=== PATIENT | female | born 1985 | race Asian ===

== ENCOUNTER 2019-01-01 05:50 | Emergency (ER) | payer SELFPAY ==
[~2019-01-01] VITALS: Ht 157.5 cm; Wt 90.7 kg
[2019-01-01] MEDS ORDERED: ONDANSETRON PF 4 MG/2 ML VIAL. IV ONE (06:15)
[2019-01-01] MEDS ORDERED: IV NORMAL SALINE 1000ML BAG 1,000 ML IV SCH (06:15)
[2019-01-01] MEDS ORDERED: fentaNYL PF VIAL 100 MCG/2 ML VIAL IV ONE (06:15)
[2019-01-01 06:27] LABS: BASO # 0.1 x10^3/uL (0.0-0.2); BASO % 1 % (0-3); EOS # 0.3 x10^3/uL (0.0-0.7); EOS % 3 % (0-3); HEMOGLOBIN 12.5 g/dL (12.0-15.5); LYMPH # 2.6 x10^3/uL (1.0-4.8); LYMPH % 32 % (24-48); MEAN CORPUSCULAR HEMOGLOBIN 27 pg (25-35); MEAN CORPUSCULAR HGB CONC 33 g/dL (31-37); MEAN CORPUSCULAR VOLUME 81 fL (79-100); MONO # 0.5 x10^3/uL (0.0-1.1); MONO % 7 % (0-9); NEUT # 4.8 x10^3/uL (1.8-7.7); NEUT % 57 % (31-73); PLATELET COUNT 181 x10^3/uL (140-400); WHITE BLOOD COUNT 8.3 x10^3/uL (4.0-11.0)
[2019-01-01 06:35] LABS: CREATININE 0.7 mg/dL (0.6-1.0); POTASSIUM 3.7 mmol/L (3.5-5.1)
[2019-01-01 06:41] LABS: ALBUMIN 3.6 g/dL (3.4-5.0); ALBUMIN/GLOBULIN RATIO 0.9 (1.0-1.7); TOTAL BILIRUBIN 0.2 mg/dL (0.2-1.0); TOTAL PROTEIN 7.4 g/dL (6.4-8.2)
[2019-01-01 06:44] LABS: BILIRUBIN,URINE SMALL (NEG); CLARITY,URINE CLOUDY; COLOR,URINE AMBER; NITRITE,URINE NEGATIVE (NEG); PROTEIN,URINE 30 mg/dL (NEG-TRACE)
[2019-01-01 07:13] LABS: BACTERIA,URINE FEW /HPF (0-FEW); SQUAMOUS EPITHELIAL CELL,UR MANY /LPF
--- NOTE | 2019-01-01 07:14 | PHYS DOC ---
Past Medical History Past Medical History: No Pertinent History Past Surgical History: No Surgical History Alcohol Use: Rarely Drug Use: None Adult General Chief Complaint Chief Complaint: FLANK PAIN HPI HPI Patient is a 33 year old female patient who presents with complaining of flank pain. Patient complaining of sudden onset of right flank pain with radiation to the suprapubic area as a sharp and constant pain since 0300 today that gradually getting worse. Patient rated her pain 10 over 10 and complaining of nausea without vomiting. Patient denies urinary symptoms, , history of the same pain or kidney stone, percent dehydration, fever and chills. Patient started to vomit at arrival to ER. Review of Systems Review of Systems Constitutional: Denies fever or chills [] Eyes: Denies change in visual acuity, redness, or eye pain [] HENT: Denies nasal congestion or sore throat [] Respiratory: Denies cough or shortness of breath [] Cardiovascular: No additional information not addressed in HPI [] GI: Denies abdominal pain, bloody stools or diarrhea , reports nausea and vomiting[] : Denies dysuria or hematuria, reports flank pain Musculoskeletal: Denies back pain or joint pain [] Integument: Denies rash or skin lesions [] Neurologic: Denies headache, focal weakness or sensory changes [] Endocrine: Denies polyuria or polydipsia [] All other systems were reviewed and found to be within normal limits, except as documented in this note. Current Medications Current Medications Current Medications Medications (Trade) Dose Ordered Sig/Yovany Start Time Stop Time Status Last Admin Dose Admin Acetaminophen/ Hydrocodone Bitart (Lortab 5/325) 1 tab 1X ONCE 01/01/19 08:15 01/01/19 08:16 DC 01/01/19 08:26 1 TAB Ciprofloxacin (Cipro) 250 mg 1X ONCE 01/01/19 08:15 01/01/19 08:16 DC 01/01/19 08:26 250 MG Fentanyl Citrate (Fentanyl 2ml Vial) 50 mcg 1X ONCE 01/01/19 06:15 01/01/19 06:17 DC 01/01/19 06:29 50 MCG Ketorolac Tromethamine (Toradol 30mg Vial) 30 mg 1X ONCE 01/01/19 07:15 01/01/19 07:16 DC 01/01/19 07:11 30 MG Metoclopramide HCl (Reglan Vial) 10 mg 1X ONCE 01/01/19 07:15 01/01/19 07:16 DC 01/01/19 07:11 10 MG Ondansetron HCl (Zofran) 4 mg 1X ONCE 01/01/19 06:15 01/01/19 06:17 DC 01/01/19 06:29 4 MG Sodium Chloride 1,000 ml @ 1,000 mls/hr Q1H 01/01/19 06:15 01/01/19 07:14 DC 01/01/19 06:29 1,000 MLS/HR Tamsulosin HCl (Flomax) 0.4 mg 1X ONCE 01/01/19 08:15 01/01/19 08:16 DC 01/01/19 08:26 0.4 MG Allergies Allergies Allergies Coded Allergies Type Severity Reaction Last Updated Verified No Known Drug Allergies 01/01/19 No Physical Exam Physical Exam Constitutional: Well developed, well nourished, moderate distress, non-toxic appearance. [] HENT: Normocephalic, atraumatic. Eyes: PERRLA, EOMI, conjunctiva normal, no discharge. [] Neck: Normal range of motion, no tenderness, supple, no stridor. [] Cardiovascular:Heart rate regular rhythm, no murmur [] Lungs & Thorax: Bilateral breath sounds clear to auscultation [] Abdomen: Bowel sounds normal, soft, no tenderness, no masses, no pulsatile masses. [] Skin: Warm, dry, no erythema, no rash. [] Back: No tenderness, no CVA tenderness. [] Extremities: No tenderness, no cyanosis, no clubbing, ROM intact, no edema. [] Neurologic: Alert and oriented X 3, no focal deficits noted. [] Psychologic: Affect normal, judgement normal, mood normal. [] Current Patient Data Vital Signs Vital Signs Date Time Temp Pulse Resp B/P (MAP) Pulse Ox O2 Delivery O2 Flow Rate FiO2 01/01/19 08:26 18 99 01/01/19 08:23 58 103/62 (76) Room Air 01/01/19 05:59 97.4 97.4 Lab Values Laboratory Tests Test 01/01/19 06:10 01/01/19 06:23 01/01/19 06:26 White Blood Count 8.3 x10^3/uL (4.0-11.0) Red Blood Count 4.70 x10^6/uL (3.50-5.40) Hemoglobin 12.5 g/dL (12.0-15.5) Hematocrit 38.0 % (36.0-47.0) Mean Corpuscular Volume 81 fL (79-100) Mean Corpuscular Hemoglobin 27 pg (25-35) Mean Corpuscular Hemoglobin Concent 33 g/dL (31-37) Red Cell Distribution Width 15.0 % (11.5-14.5) H Platelet Count 181 x10^3/uL (140-400) Neutrophils (%) (Auto) 57 % (31-73) Lymphocytes (%) (Auto) 32 % (24-48) Monocytes (%) (Auto) 7 % (0-9) Eosinophils (%) (Auto) 3 % (0-3) Basophils (%) (Auto) 1 % (0-3) Neutrophils # (Auto) 4.8 x10^3/uL (1.8-7.7) Lymphocytes # (Auto) 2.6 x10^3/uL (1.0-4.8) Monocytes # (Auto) 0.5 x10^3/uL (0.0-1.1) Eosinophils # (Auto) 0.3 x10^3/uL (0.0-0.7) Basophils # (Auto) 0.1 x10^3/uL (0.0-0.2) Maternal Serum HCG Beta Subunit < 1 mIU/mL (0-5) Sodium Level 143 mmol/L (136-145) Potassium Level 3.7 mmol/L (3.5-5.1) Chloride Level 109 mmol/L (98-107) H Carbon Dioxide Level 25 mmol/L (21-32) Anion Gap 9 (6-14) Blood Urea Nitrogen 13 mg/dL (7-20) Creatinine 0.7 mg/dL (0.6-1.0) Estimated GFR (Cockcroft-Gault) 97.0 BUN/Creatinine Ratio 19 (6-20) Glucose Level 125 mg/dL (70-99) H Calcium Level 9.0 mg/dL (8.5-10.1) Total Bilirubin 0.2 mg/dL (0.2-1.0) Aspartate Amino Transferase (AST) 17 U/L (15-37) Alanine Aminotransferase (ALT) 17 U/L (14-59) Alkaline Phosphatase 67 U/L (46-116) Total Protein 7.4 g/dL (6.4-8.2) Albumin 3.6 g/dL (3.4-5.0) Albumin/Globulin Ratio 0.9 (1.0-1.7) L Lipase 80 U/L (73-393) Urine Collection Type Void Urine Color Stacey Urine Clarity Cloudy Urine pH 5.0 Urine Specific [place] >=1.030 Urine Protein 30 mg/dL (NEG-TRACE) Urine Glucose (UA) Negative mg/dL (NEG) Urine Ketones (Stick) Negative mg/dL (NEG) Urine Blood Large (NEG) Urine Nitrite Negative (NEG) Urine Bilirubin Small (NEG) Urine Urobilinogen Dipstick 1.0 mg/dL (0.2 mg/dL) Urine Leukocyte Esterase Small (NEG) Urine RBC 11-20 /HPF (0-2) Urine WBC 5-10 /HPF (0-4) Urine Squamous Epithelial Cells Many /LPF Urine Bacteria Few /HPF (0-FEW) Urine Mucus Slight /LPF POC Urine HCG, Qualitative Hcg negative (Negative) Laboratory Tests 01/01/19 06:10 Laboratory Tests 01/01/19 06:10 EKG EKG [] Radiology/Procedures Radiology/Procedures [][facility] [id number] [place], [place] [id number] IMAGING REPORT Signed PATIENT: LISA LATHAM ACCOUNT: [id number] : 1985 LOCATION: ER AGE: 33 SEX: F EXAM STATUS: REG ER ORD. PHYSICIAN: KATHERINE ROCK MD REASON: flank pain PROCEDURE: CT ABDOMEN PELVIS WO CONTRAST Study: CT abdomen and pelvis without contrast Indication: Flank pain. Comparison: None. Technique: Helical CT imaging performed of the abdomen and pelvis without the use of intravenous contrast. Sagittal and coronal reformats were obtained. Findings: Not well evaluated on this unenhanced CT is a low-attenuation focus in the inferior aspect of the right hepatic lobe, image 53 series 2, measuring approximately 4.8 x 3.8 x 4.2 cm. A few additional subcentimeter low-attenuation foci may be present such as in the anterior aspect of the left hepatic lobe on image 46 series 2, there are difficult to delineate. The unenhanced appearance of the pancreas, adrenal glands, spleen and gallbladder is unremarkable. Mild hydronephrosis and proximal hydroureter on the right in the setting of a 4 mm nephrolithiasis within the proximal right ureter, image 112 series 2. Mild periureteral fat stranding in this region. No nephrolithiasis seen on the left or dilatation of the collecting system. The urinary bladder is mostly collapsed. Unremarkable uterus with intrauterine contraceptive device. The adnexa are unremarkable. The colon is unremarkable. The appendix is unremarkable. The small bowel and stomach are unremarkable. No free fluid within the deep pelvis. No lymphadenopathy. Normal caliber of the abdominal aorta. Unremarkable osseous structures. Impression: 1. Obstructing nephrolithiasis measuring 4 mm and located within the proximal right ureter with mild resultant hydronephrosis. 2. Incompletely evaluated low-attenuation focus within the inferior aspect of the right hepatic lobe (hepatic segment 6) measuring approximate 4.8 x 3.8 x 4.2 cm. This likely represent a benign finding given patient age such as a hemangioma. Further characterization with nonemergent MRI or multiphase CT would allow for full characterization. A few additional low-attenuation foci measuring less than a centimeter may be also be present elsewhere in the liver but are difficult to delineate given noncontrast technique. Electronically signed by: ELFEGO JOHNSON MD (01/01/2019 7:48 AM) [facility] DICTATED and SIGNED BY: ELFEGO JOHNSON MD DATE: 01/01/19 0748 Course & Med Decision Making Course & Med Decision Making Pertinent Labs and Imaging studies reviewed. (See chart for details) Evaluation of patient in ER showed 33-year-old female patient with complaining of right flank pain for the last 3 hours as a constant sharp pain. Patient did not have CVA or abdominal tenderness. Patient had 4 mm stone in right ureter with mild hydronephrosis. Patient had accidental finding of possible liver hemangioma. Patient felt better with treatment in ER. 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 Gracie Disclaimer Dragon Disclaimer This electronic medical record was generated, in whole or in part, using a voice recognition dictation system. Departure Departure Impression: Primary Impression: Renal colic on right side Additional Impressions: Ureterolithiasis UTI (urinary tract infection) Nausea and vomiting Disposition: HOME, SELF-CARE (at 0813) Condition: IMPROVED Referrals: NO PCP (PCP) RUSTAM CHAVEZ MD Patient Instructions: Diet for Kidney Stones, Kidney Stones, Urinary Tract Infection Additional Instructions: Drink plenty of liquids Follow-up with your primary care physician in 3-5 days Return to ER if not getting better Follow-up with urologist on-call in one or 2 days Scripts Ondansetron Hcl (ZOFRAN) 4 Mg Tablet 1 TAB PO PRN Q6-8HRS for nausea, #12 TAB Prov: KATHERINE ROCK MD 01/01/19 Hydrocodone/Apap 5-325 (NORCO 5-325 TABLET) 1 Each Tablet 1 TAB PO PRN Q6HRS PRN for PAIN, #14 TAB 0 Refills Prov: KATHERINE ROCK MD 01/01/19 Ibuprofen (IBUPROFEN) 800 Mg Tablet 800 MG PO PRN Q8HRS PRN for INFLAMMATION, #20 TAB Prov: KATHERINE ROCK MD 01/01/19 Tamsulosin Hcl (FLOMAX) 0.4 Mg Cap.er.24h 1 CAP PO DAILY, #14 CAP 0 Refills Prov: KATHERINE ROCK MD 01/01/19 Ciprofloxacin Hcl (CIPRO) 250 Mg Tablet 1 TAB PO BID for infection, #14 TAB Prov: KATHERINE ROCK MD 01/01/19 Problem Qualifiers Additional Impressions: UTI (urinary tract infection) Urinary tract infection type: acute cystitis Hematuria presence: with hematuria Qualified Codes: N30.01 - Acute cystitis with hematuria Nausea and vomiting Vomiting type: unspecified Vomiting Intractability: non-intractable Qualified Codes: R11.2 - Nausea with vomiting, unspecified KATHERINE ROCK MD Jan 01, 2019 07:14
[2019-01-01] MEDS ORDERED: METOCLOPRAMIDE HCL 10 MG/2 ML VIAL. IV ONE (07:15)
[2019-01-01] MEDS ORDERED: KETOROLAC 30 MG/ML VIAL. IV ONE (07:15)
--- NOTE | 2019-01-01 07:51 | RAD ---
Study: CT abdomen and pelvis without contrast Indication: Flank pain. Comparison: None. Technique: Helical CT imaging performed of the abdomen and pelvis without the use of intravenous contrast. Sagittal and coronal reformats were obtained. Findings: Not well evaluated on this unenhanced CT is a low-attenuation focus in the inferior aspect of the right hepatic lobe, image 53 series 2, measuring approximately 4.8 x 3.8 x 4.2 cm. A few additional subcentimeter low-attenuation foci may be present such as in the anterior aspect of the left hepatic lobe on image 46 series 2, there are difficult to delineate. The unenhanced appearance of the pancreas, adrenal glands, spleen and gallbladder is unremarkable. Mild hydronephrosis and proximal hydroureter on the right in the setting of a 4 mm nephrolithiasis within the proximal right ureter, image 112 series 2. Mild periureteral fat stranding in this region. No nephrolithiasis seen on the left or dilatation of the collecting system. The urinary bladder is mostly collapsed. Unremarkable uterus with intrauterine contraceptive device. The adnexa are unremarkable. The colon is unremarkable. The appendix is unremarkable. The small bowel and stomach are unremarkable. No free fluid within the deep pelvis. No lymphadenopathy. Normal caliber of the abdominal aorta. Unremarkable osseous structures. Impression: 1. Obstructing nephrolithiasis measuring 4 mm and located within the proximal right ureter with mild resultant hydronephrosis. 2. Incompletely evaluated low-attenuation focus within the inferior aspect of the right hepatic lobe (hepatic segment 6) measuring approximate 4.8 x 3.8 x 4.2 cm. This likely represent a benign finding given patient age such as a hemangioma. Further characterization with nonemergent MRI or multiphase CT would allow for full characterization. A few additional low-attenuation foci measuring less than a centimeter may be also be present elsewhere in the liver but are difficult to delineate given noncontrast technique. Electronically signed by: ELFEGO JOHNSON MD (01/01/2019 7:48 AM) [facility]
[2019-01-01] MEDS ORDERED: CIPROFLOXACIN HCL 250 MG TABLET. PO ONE (08:15)
[2019-01-01] MEDS ORDERED: HYDROcodone/APAP 5/325MG 1 TAB TABLET PO ONE (08:15)
[2019-01-01] MEDS ORDERED: TAMSULOSIN 0.4 MG CAP.ER.24H. PO ONE (08:15)
[2019-01-01] MEDS ORDERED: TAMS0.4C97 PO (08:17)
[2019-01-01] MEDS ORDERED: CIPR250T30 PO (08:17)
[2019-01-01] MEDS ORDERED: ONDA4TAB7 PO (08:17)
[2019-01-01] MEDS ORDERED: HYDR-3164 PO (08:17)
[2019-01-01] MEDS ORDERED: IBUP-1060 PO (08:17)
[2019-01-01 08:23] VITALS: BP 103/62
== END 2019-01-01 08:28 | disposition home or self-care (01) ==
LOC: ER 05:50
DX: N13.6 Pyonephrosis (principal); R11.2 Nausea with vomiting, unspecified
CPT/HCPCS: 36415; 74176; 80053; 81001; 81025; 83690; 84702; 85025; 87086; 96374; 96375; 99285; J1885; J2405; J2765; J3010; J7030